=== PATIENT | female | born 1960 | race Two or more races ===

== ENCOUNTER 2016-11-01 10:05 | Emergency (ER) | payer MEDICAID, OTHER ==
[~2016-11-01] VITALS: Ht 162.6 cm; Wt 81.6 kg
[2016-11-01] MEDS: KETOROLAC TROMETH 60MG/2ML VIAL IM ONE ×2 (11:51→11:54)
[2016-11-01 12:21] VITALS: BP 158/90
== END 2016-11-01 12:22 | disposition home or self-care (01) ==
LOC: ER 10:05
DX: S46.912A Strain of unspecified muscle, fascia and tendon at shoulder and upper arm level, left arm, initial encounter (principal); E11.9 Type 2 diabetes mellitus without complications; I10 Essential (primary) hypertension; X58.XXXA Exposure to other specified factors, initial encounter; Y93.89 Activity, other specified; Y99.8 Other external cause status; Y92.89 Other specified places as the place of occurrence of the external cause; Z88.0 Allergy status to penicillin; Z88.8 Allergy status to other drugs, medicaments and biological substances
CPT/HCPCS: 71020; 93005; 94761; 99284; J1885

== ENCOUNTER 2023-11-18 10:50 | Inpatient (IN) | payer MEDICAID ==
[~2023-11-18] VITALS: Ht 162.6 cm; Wt 83.2 kg
[2023-11-18 11:40] VITALS: PULSE 91; RESP 14; O2SAT 97
[2023-11-18] MEDS: SODIUM CHLORIDE 0.9% 1,000 ML IV ONE (12:04)
[2023-11-18 12:32] LABS: Basophils # (auto) 0 10 ^3/uL (0-0.2); Basophils % (auto) 0.3 % (0.0-2.0); Eosinophils # (auto) 0.1 10 ^3/uL (0-0.8); Eosinophils % (auto) 1.3 % (0.0-7.0); Hematocrit 34.1 % (36.0-46.0); Hemoglobin 11.4 g/dL (12.2-16.2); Lymphocytes # (auto) 1.5 10 ^3/uL (0.4-5.4); Mean Corpuscular Hemoglobin 28.9 pg (28.0-32.0); Mean Corpuscular Hgb Conc. 33.4 g/dL (32.0-36.0); Mean Corpuscular Volume 86.6 fL (80.0-100.0); Monocytes # (auto) 0.5 10 ^3/uL (0-1.3); Monocytes % (auto) 5.3 % (0.0-12.0); Neutrophils # (auto) 7.8 10 ^3/uL (1.6-8.6); Neutrophils % (auto) 78.1 % (37.0-80.0); Red Blood Cells 3.94 10^6/uL (4.0-5.20); Red Cell Distribution Width 14.8 % (11.8-14.3)
[2023-11-18 12:33] LABS: Chloride 107 mmol/L (98-107); Potassium 3.9 mmol/L (3.5-5.1); Sodium 139 mmol/L (136-145)
[2023-11-18 12:34] LABS: Anion Gap 7 (5-15); Calcium 9.6 mg/dL (8.5-10.1); Carbon Dioxide 25 mmol/L (20-30)
[2023-11-18 12:39] LABS: BUN/Creatinine Ratio 13.3 (10.0-20.0); Blood Urea Nitrogen 22 mg/dL (9-23); Glucose 150 mg/dL (74-106)
[2023-11-18] MEDS ORDERED: METF-370 PO (14:13)
[2023-11-18] MEDS ORDERED: GABA-339 PO (14:13)
[2023-11-18] MEDS ORDERED: OXYB5TAB14 (14:13)
[2023-11-18] MEDS ORDERED: DOCU-265 PO (14:13)
[2023-11-18] MEDS ORDERED: OMEP1CAP70 PO (14:13)
[2023-11-18] MEDS ORDERED: AMLO1TAB23 PO (14:13)
[2023-11-18] MEDS ORDERED: PIOG1TAB36 PO (14:13)
[2023-11-18] MEDS ORDERED: POTA-215 (14:13)
[2023-11-18] MEDS ORDERED: GLIP10TA9 PO (14:13)
[2023-11-18] MEDS ORDERED: CONT1KIT21 (14:13)
[2023-11-18] MEDS ORDERED: LISI40TA16 PO (14:13)
[2023-11-18] MEDS ORDERED: LORA10TA12 PO (14:13)
[2023-11-18] MEDS ORDERED: LORA-1121 PO (14:13)
[2023-11-18] MEDS ORDERED: SITA100T7 PO (14:13)
[2023-11-18] MEDS ORDERED: FURO40TA4 PO (14:13)
[2023-11-18] MEDS ORDERED: DEXTROSE (50%) 50ML SYRG IV PRN (14:15)
[2023-11-18] MEDS ORDERED: ACETAMINOPHEN 325 MG TAB PO PRN (14:15)
[2023-11-18] MEDS ORDERED: DOCUSATE SOD 100 MG CAP PO PRN (14:15)
[2023-11-18 14:38] LABS: Triglycerides 299 mg/dL (< 150)
[2023-11-18 14:39] LABS: LDL Cholesterol 155 mg/dL (< 100)
[2023-11-18 14:41] LABS: Cholesterol 260 mg/dL (< 200); HDL Cholesterol 44 mg/dL (40-59)
[2023-11-18 15:54] LABS: Urine Bacteria None Seen /hpf (None Seen)
[2023-11-18] MEDS: SODIUM CHLORIDE 0.9% 1,000 ML IV SCH (16:00)
[2023-11-18 16:14] LABS: Urine Blood 1+ /uL (Negative); Urine Clarity Clear (Clear); Urine Color Light-Yellow (Yellow); Urine Protein, UAD 2+ (Negative); Urine Specific Gravity 1.014 (1.001-1.035); Urine Urobilinogen Normal (Negative); Urine WBC <1 /hpf (0 - 5)
[2023-11-18] MEDS: ACCU-CHEK COMFORT CURVE STRIP VI SCH (17:00)
[2023-11-18] MEDS: InsuLIN REG 1unit/0.01ml Soln (100units/ml) SC SCH (18:51)
[2023-11-18 20:00] VITALS: BP 183/83; PULSE 90; RESP 18; TEMP 97.9; O2SAT 98
[2023-11-18 21:00] VITALS: BP 183/83; PULSE 90; RESP 18; TEMP 97.9; O2SAT 98
[2023-11-18] MEDS: GABAPENTIN 300 MG CAP PO SCH (21:52)
[2023-11-18] MEDS ORDERED: PATIENTS OWN MEDICATION (Gabapentin 1 TAB) PO SCH (22:00)
[2023-11-19] MEDS: hydrALAZINE HCL 20 MG/ML VL IV PRN (00:06)
[2023-11-19 01:00] VITALS: BP 142/74; PULSE 75; RESP 18; TEMP 97.9; O2SAT 99
[2023-11-19 05:00] VITALS: BP 155/75; PULSE 91; RESP 18; TEMP 97.9; O2SAT 97
[2023-11-19 06:51] LABS: Basophils # (auto) 0 10 ^3/uL (0-0.2); Basophils % (auto) 0.3 % (0.0-2.0); Eosinophils # (auto) 0.2 10 ^3/uL (0-0.8); Eosinophils % (auto) 2.2 % (0.0-7.0); Hematocrit 32.6 % (36.0-46.0); Hemoglobin 11.1 g/dL (12.2-16.2); Lymphocytes # (auto) 2.8 10 ^3/uL (0.4-5.4); Lymphocytes % (auto) 29.2 % (10.0-50.0); Mean Corpuscular Hemoglobin 28.9 pg (28.0-32.0); Mean Corpuscular Hgb Conc. 33.9 g/dL (32.0-36.0); Mean Corpuscular Volume 85.3 fL (80.0-100.0); Monocytes # (auto) 0.5 10 ^3/uL (0-1.3); Monocytes % (auto) 5.4 % (0.0-12.0); Neutrophils % (auto) 62.9 % (37.0-80.0); Red Blood Cells 3.82 10^6/uL (4.0-5.20); Red Cell Distribution Width 14.8 % (11.8-14.3); White Blood Cell 9.5 10^3/uL (4.4-10.8)
[2023-11-19 07:03] LABS: Alanine Aminotransferase 17 U/L (7-40); Alkaline Phosphatase 157 U/L (46-116); Anion Gap 9 (5-15); BUN/Creatinine Ratio 19.4 (10.0-20.0); Blood Urea Nitrogen 27 mg/dL (9-23); Calcium 9.3 mg/dL (8.7-10.4); Carbon Dioxide 23 mmol/L (20-30); Chloride 108 mmol/L (98-107); Glucose 142 mg/dL (74-106); Potassium 4.1 mmol/L (3.5-5.1); Sodium 140 mmol/L (136-145)
[2023-11-19 07:04] LABS: Albumin 3.6 g/dL (3.2-4.8); Aspartate Aminotransferase 15 U/L (13-40)
[2023-11-19 07:05] LABS: Bilirubin, Total 0.4 mg/dL (0.2-1.0); Total Protein 6.8 g/dL (5.7-8.2)
[2023-11-19 08:57] VITALS: BP 158/80; PULSE 83; RESP 18; TEMP 98.4; O2SAT 98
[2023-11-19] MEDS ORDERED: PATIENTS OWN MEDICATION (Amlodipine Besylate 1 TAB) PO SCH (10:00)
[2023-11-19] MEDS ORDERED: PATIENTS OWN MEDICATION (Omeprazole (Omeprazole Dr) 1 CAP) PO SCH (10:00)
[2023-11-19] MEDS: PIOGLITAZONE HYDROCHLORIDE 15 MG PO SCH (10:00)
[2023-11-19] MEDS ORDERED: PATIENTS OWN MEDICATION (Lisinopril 1 TAB) PO SCH (10:00)
[2023-11-19] MEDS: LISINOPRIL 20 MG TAB PO SCH (10:43)
[2023-11-19] MEDS: OXYBUTYNIN CHL 5 MG TAB PO SCH (10:44)
[2023-11-19] MEDS: amLODIPine BESYLATE 5 MG TAB PO SCH (10:44)
[2023-11-19] MEDS: FUROSEMIDE 40 MG TAB PO SCH (10:45)
[2023-11-19] MEDS: ENOXAPARIN SOD 40 MG/0.4 ML SYRINGE SC SCH (10:45)
[2023-11-19] MEDS: LORATADINE 10 MG TAB PO SCH (10:45)
[2023-11-19] MEDS: PANTOPRAZOLE 40 MG TAB PO SCH (10:45)
[2023-11-19 13:00] VITALS: BP 168/76; PULSE 67; RESP 18; TEMP 98.3; O2SAT 96
[2023-11-19] MEDS ORDERED: SITA100T7 PO (14:07)
[2023-11-19] MEDS ORDERED: GABA-1250 PO (14:07)
[2023-11-19] MEDS ORDERED: LORA-483 PO (14:07)
[2023-11-19] MEDS ORDERED: LISI20TA56 PO (14:07)
[2023-11-19] MEDS ORDERED: AMLO1TAB23 PO (14:07)
[2023-11-19 16:01] VITALS: BP 158/80; PULSE 83; RESP 18; TEMP 98.4; O2SAT 98
== END 2023-11-19 16:23 | disposition home or self-care (01) | DRG 420 ==
LOC: ER 10:50 → EDBD 10:50 → CENTRAL 14:11 → OVERFLOW 14:11 → CENTRAL 17:05
PROVIDERS: ADMIT Nurse Practitioner Family; ATTEND Internal Medicine
DX: E11.649 Type 2 diabetes mellitus with hypoglycemia without coma (principal); N17.0 Acute kidney failure with tubular necrosis; E66.01 Morbid (severe) obesity due to excess calories; I10 Essential (primary) hypertension; Z88.0 Allergy status to penicillin; Z79.4 Long term (current) use of insulin; Z68.31 Body mass index [BMI] 31.0-31.9, adult; W18.39XA Other fall on same level, initial encounter; Y93.89 Activity, other specified; Y92.89 Other specified places as the place of occurrence of the external cause; Y99.8 Other external cause status
CPT/HCPCS: 36415; 80048; 80053; 80061; 81001; 82962; 83036; 83930; 84443; 85025; 96360; G0378; J1815